=== PATIENT | female | born 1965 | race Caucasian/White ===

== ENCOUNTER → 2016-07-29 | Outpatient (CLI) | payer OTHER, MEDICARE ==
[~2016-07-29] MED LIST: ATIVAN-DPS0.5 MG PO; B & O SUPP 16.1 SUPP PR; CIPRO DPS500 MG PO; DULCOLAX-DPS10 MG PR; FEOSOL-DPS325 MG PO; LEXAPRO DPS20 MG PO; LIORESAL DPS10 MG PO; MIRALAX PACKET17 GM PO; MYLICON DPS80 MG PO; NEURONTIN DPS300 MG PO; PEPCID DPS20 MG PO; SURFAK DPS240 MG PO; SYNTHROID DP0.088 MG PO; THERA1 EACH PO; TYLENOL DPS325 MG PO; TYSABRI300 MG/15 IV; VITAMIN D-32000 UNI1 PO; VITAMIN D2000 UNI1 PO; XARELTO15 MG PO
== END | disposition home or self-care (01) ==
LOC: RAD.S 09:19
DX: G35 Multiple sclerosis (principal); M50.322 Other cervical disc degeneration at C5-C6 level